=== PATIENT | male | born 1970 | race Caucasian/White ===

== ENCOUNTER 2022-01-23 14:44 | Emergency (ER) | payer OTHER ==
[~2022-01-23] VITALS: Ht 175.3 cm; Wt 100.0 kg
[2022-01-23] MEDS ORDERED: IBUPROFEN 600MG TABLET PO ONE (15:30)
[2022-01-23] MEDS ORDERED: ACETAMINOPHEN 325MG TABLET PO ONE (15:30)
[2022-01-23] MEDS ORDERED: TETANUS, DIPHTHERIA, PERTUSSIS VAC/PF 0.5ML (>10YR OLD) IM ONE (15:30)
[2022-01-23] MEDS ORDERED: BACITRACIN ZINC OINT UDPKT TOP ONE (15:30)
[2022-01-23] MEDS ORDERED: LIDOCAINE HCL/EPINEPHRINE 1%-EPI 1:100,000 20 ML VIAL INFIL ONE (15:30)
[2022-01-23] MEDS ORDERED: BO1 TP (16:59)
[2022-01-23 18:00] VITALS: BP 174/88
== END 2022-01-23 18:55 | disposition home or self-care (01) ==
LOC: ER 14:53
DX: S91.312A Laceration without foreign body, left foot, initial encounter (principal); W25.XXXA Contact with sharp glass, initial encounter; Y93.02 Activity, running; Y92.414 Local residential or business street as the place of occurrence of the external cause
CPT/HCPCS: 73630; 99283; J3490; Z7610